=== PATIENT | female | born 1950 | race Caucasian/White ===

== ENCOUNTER 2017-09-14 15:54 | Emergency (ER) | payer OTHER ==
[~2017-09-14] VITALS: Ht 154.9 cm; Wt 52.6 kg
[2017-09-14 16:50] VITALS: BP 156/84
== END 2017-09-14 17:17 | disposition home or self-care (01) ==
LOC: ER 15:54
DX: J20.9 Acute bronchitis, unspecified (principal); K21.9 Gastro-esophageal reflux disease without esophagitis

== ENCOUNTER 2017-10-07 06:46 | Emergency (ER) | payer OTHER ==
[~2017-10-07] VITALS: Ht 152.4 cm; Wt 57.6 kg
[2017-10-07 07:51] VITALS: BP 152/93
[2017-10-07] MEDS ORDERED: HYDROmorphone HCL 2 MG/ML VL IM ONE (08:00)
[2017-10-07] MEDS ORDERED: ONDANSETRON HCL 4 MG/2 ML VIAL IM ONE (08:00)
[2017-10-07] MEDS ORDERED: METHOCARBAMOL 500 MG TAB PO ONE (08:00)
== END 2017-10-07 09:13 | disposition home or self-care (01) ==
LOC: ER 06:47
DX: S16.1XXA Strain of muscle, fascia and tendon at neck level, initial encounter (principal); M41.84 Other forms of scoliosis, thoracic region; X58.XXXA Exposure to other specified factors, initial encounter; Y93.89 Activity, other specified; Y99.8 Other external cause status; Y92.89 Other specified places as the place of occurrence of the external cause
CPT/HCPCS: 96372; 99284; J1170; J2405